=== PATIENT | female | born 1940 | race Caucasian/White ===

== ENCOUNTER 2016-08-01 12:00 | Inpatient (IN) | payer MEDICARE ==
[~2016-08-01] VITALS: Ht 162.6 cm; Wt 58.5 kg
[2016-08-01 13:23] LABS: HEMATOCRIT 38.5 % (37.0-47.0); HEMOGLOBIN 13.2 g/dl (12.0-16.0); IMMATURE GRANULOCYTES 0.4 % (0.0-1.0); MEAN CELL VOLUME 89.5 fL CALC (80.0-100.0); MEAN CORPUSCULAR HGB 30.7 pG CALC (26.0-32.0); MEAN CORPUSCULAR HGB CONC 34.3 g/L CALC (32.0-36.0); NEUT# 5.69 thou/uL (2.00-7.15); RED BLOOD COUNT 4.3 mill/uL (4.20-5.60); RED CELL DISTRI WIDTH 12.8 % (11.5-15.5)
[2016-08-01 13:36] LABS: PROTHROMBIN TIME 10.6 SECONDS (9.0-12.5)
[2016-08-01 13:49] LABS: ALBUMIN 4.2 g/dL (3.2-5.0); ALKALINE PHOSPHATASE 88 u/l (38-126); ANION GAP 15 (6-22 (CALC)); BILIRUBIN, TOTAL 0.9 mg/dL (0.0-1.4); BUN 17 mg/dL (8-23); BUN/CREATININE RATIO 21 (12-20 (CALC)); CALCIUM 9.5 mg/dL (8.4-10.2); CARBON DIOXIDE 28 mmol/l (22-30); CHLORIDE 102 mmol/l (95-108); CREATININE 0.8 mg/dL (0.5-1.0); GFR > 60 ML/MIN (>=60 (CALC)); GFR FOR AFR.AMER. > 60 ML/MIN (>=60 (CALC)); GLUCOSE 169 mg/dL (82-115); SGOT/AST 16 u/l (9-36); SGPT/ALT 17 u/l (11-66); SODIUM 142 mmol/l (137-146)
[2016-08-01 14:48] VITALS: BP 178/88
[2016-08-01 20:00] VITALS: BP 142/82
[2016-08-02 05:00] VITALS: BP 110/63
[2016-08-02 05:30] LABS: HEMATOCRIT 36.3 % (37.0-47.0); HEMOGLOBIN 12.1 g/dl (12.0-16.0); IMMATURE GRANULOCYTES 0.3 % (0.0-1.0); MEAN CELL VOLUME 89.4 fL CALC (80.0-100.0); MEAN CORPUSCULAR HGB 29.8 pG CALC (26.0-32.0); MEAN CORPUSCULAR HGB CONC 33.3 g/L CALC (32.0-36.0); NEUT# 3.21 thou/uL (2.00-7.15); RED BLOOD COUNT 4.06 mill/uL (4.20-5.60); RED CELL DISTRI WIDTH 12.6 % (11.5-15.5)
[2016-08-02 05:33] LABS: ANION GAP 13 (6-22 (CALC)); BUN 16 mg/dL (8-23); BUN/CREATININE RATIO 20 (12-20 (CALC)); CALCIUM 9.1 mg/dL (8.4-10.2); CARBON DIOXIDE 27 mmol/l (22-30); CHLORIDE 106 mmol/l (95-108); CREATININE 0.8 mg/dL (0.5-1.0); GFR > 60 ML/MIN (>=60 (CALC)); GFR FOR AFR.AMER. > 60 ML/MIN (>=60 (CALC)); GLUCOSE 100 mg/dL (82-115); SODIUM 142 mmol/l (137-146)
[2016-08-02 08:25] VITALS: BP 114/67
[2016-08-02] MEDS ORDERED: XARELTO15 MG PO (12:28)
[2016-08-02] MEDS ORDERED: XARELTO20 MG PO (12:28)
== END 2016-08-02 15:05 | disposition home or self-care (01) | DRG 301 ==
LOC: ENPENDDIS → ED 12:00 → ED-I 13:16 → ED 13:25 → MS2 13:26
PROVIDERS: Emergency Medicine; ADMIT Internal Medicine; ATTEND Internal Medicine
DX: I82.412 Acute embolism and thrombosis of left femoral vein (principal); I82.432 Acute embolism and thrombosis of left popliteal vein; F03.90 Unspecified dementia, unspecified severity, without behavioral disturbance, psychotic disturbance, mood disturbance, and anxiety; I82.502 Chronic embolism and thrombosis of unspecified deep veins of left lower extremity
CPT/HCPCS: J1650

== ENCOUNTER 2017-02-06 15:55 | Observation (INO) | payer MEDICARE ==
[~2017-02-06] VITALS: Ht 162.6 cm; Wt 54.1 kg
[~2017-02-06 15:55] MED LIST: COUMADIN5 MG PO; DONEPEZIL5 MG PO; KEFLEX500 MG PO; XARELTO15 MG PO; XARELTO20 MG PO
[2017-02-06 16:22] VITALS: BP 200/96
[2017-02-06] MEDS ORDERED: AMLODIPINE BESYL5 MG PO (16:36)
[2017-02-06] MEDS ORDERED: DONEPEZIL5 MG PO (16:36)
[2017-02-06 17:06] LABS: HEMATOCRIT 43.2 % (37.0-47.0); HEMOGLOBIN 14.8 g/dl (12.0-16.0); IMMATURE GRANULOCYTES 0.2 % (0.0-1.0); MEAN CELL VOLUME 88.5 fL CALC (80.0-100.0); MEAN CORPUSCULAR HGB 30.3 pG CALC (26.0-32.0); MEAN CORPUSCULAR HGB CONC 34.3 g/L CALC (32.0-36.0); NEUT# 3.03 thou/uL (2.00-7.15); RED BLOOD COUNT 4.88 mill/uL (4.20-5.60); RED CELL DISTRI WIDTH 13.1 % (11.5-15.5)
[2017-02-06 17:22] LABS: INTERNATIONAL NORMALIZED RATIO 1.3 RATIO (0.7-1.3); PROTHROMBIN TIME 13.8 SECONDS (9.0-12.5)
[2017-02-06 17:25] LABS: ALBUMIN 5.3 g/dL (3.2-5.0); ALKALINE PHOSPHATASE 83 u/l (38-126); ANION GAP 19 (6-22 (CALC)); BILIRUBIN, TOTAL 0.9 mg/dL (0.0-1.4); BUN 15 mg/dL (8-23); BUN/CREATININE RATIO 20 (12-20 (CALC)); CALCIUM 10.7 mg/dL (8.4-10.2); CARBON DIOXIDE 26 mmol/l (22-30); CHLORIDE 101 mmol/l (95-108); CREATININE 0.7 mg/dL (0.5-1.0); GFR > 60 ML/MIN (>=60 (CALC)); GFR FOR AFR.AMER. > 60 ML/MIN (>=60 (CALC)); GLUCOSE 85 mg/dL (82-115); POTASSIUM 3.9 mmol/l (3.5-5.1); SGOT/AST 24 u/l (9-36); SGPT/ALT 30 u/l (11-66); SODIUM 143 mmol/l (137-146); TOTAL PROTEIN 8.4 g/dL (6.3-8.2)
[2017-02-06 19:08] VITALS: BP 148/79
[2017-02-07 01:00] VITALS: BP 172/80
[2017-02-07 05:47] VITALS: BP 153/87
[2017-02-07 06:38] LABS: INTERNATIONAL NORMALIZED RATIO 1.2 RATIO (0.7-1.3); PROTHROMBIN TIME 13.6 SECONDS (9.0-12.5)
[2017-02-07 07:26] VITALS: BP 169/101
[2017-02-07 12:44] VITALS: BP 152/96
[2017-02-07 15:45] VITALS: BP 150/98
[2017-02-07 19:54] VITALS: BP 149/90
[2017-02-08 03:54] VITALS: BP 169/92
[2017-02-08 06:54] LABS: INTERNATIONAL NORMALIZED RATIO 1.2 RATIO (0.7-1.3); PROTHROMBIN TIME 13.3 SECONDS (9.0-12.5)
[2017-02-08 08:44] VITALS: BP 178/87
== END 2017-02-08 13:50 | disposition home or self-care (01) ==
LOC: MS2 15:55
PROVIDERS: ADMIT Internal Medicine; ATTEND Internal Medicine
DX: F03.91 Unspecified dementia, unspecified severity, with behavioral disturbance (principal); Z91.14 Patient's other noncompliance with medication regimen; R79.1 Abnormal coagulation profile; Z91.83 Wandering in diseases classified elsewhere; Z86.718 Personal history of other venous thrombosis and embolism; Z74.2 Need for assistance at home and no other household member able to render care
CPT/HCPCS: J1650